=== PATIENT | male | born 1950 | race African-American/Black ===

== ENCOUNTER 2021-07-04 05:44 | Day surgery (SDC) | payer OTHER ==
[2021-07-02 12:23] VITALS: BMI 24.0
[2021-07-04 12:10] VITALS: TEMP 97.5
[2021-07-04 12:35] VITALS: BP 119/75; PULSE 64
== END 2021-07-04 12:36 | disposition home or self-care (01) ==
LOC: JASU-ENDO 05:44
PROVIDERS: ATTEND Internal Medicine Gastroenterology
PROC: 0DJD8ZZ Inspection of Lower Intestinal Tract, Via Natural or Artificial Opening Endoscopic (ICD-10-PCS; principal; 2021-07-04 11:00)
DX: Z12.11 Encounter for screening for malignant neoplasm of colon (principal); K63.89 Other specified diseases of intestine; K59.09 Other constipation

== ENCOUNTER 2021-08-07 20:29 | Emergency (ER) | payer OTHER ==
[2021-08-07 20:51] VITALS: BP 111/71; PULSE 95; TEMP 98.9; BMI 25.0
[2021-08-07] MEDS ORDERED: KETOROLAC TROMETHAMINE 30 MG/1 ML VIAL IM ONE (21:53)
[2021-08-07] MEDS ORDERED: LIDOCAINE 5% TOPICAL PATCH TP ONE (21:53)
[2021-08-07] MEDS ORDERED: ACETAMINOPHEN 500 MG TABLET (FP) PO ONE (21:53)
[2021-08-07] MEDS ORDERED: LIDOCAINE PATCH REMOVAL MC SCH (22:00)
[2021-08-07] MEDS ORDERED: DEXAMETHASONE SOD PHOSPHATE 10 MG/1 ML VIAL IM ONE (23:03)
[2021-08-07] MEDS ORDERED: DEXAMETHASONE SOD PHOSPHATE 10 MG/1 ML VIAL ONE (23:09)
== END 2021-08-07 22:17 | disposition home or self-care (01) ==
LOC: JER 20:29
PROC: 3E023GC Introduction of Other Therapeutic Substance into Muscle, Percutaneous Approach (ICD-10-PCS; principal; 2021-08-07)
PROC: 3E0233Z Introduction of Anti-inflammatory into Muscle, Percutaneous Approach (ICD-10-PCS; 2021-08-07)
DX: M54.50 Low back pain, unspecified (principal)
CPT/HCPCS: 73110-TC-RT-FY; 73130-TC-RT-FY; 99284-25; J1100

== ENCOUNTER 2021-08-15 20:57 | Inpatient (IN) | payer OTHER ==
[2021-08-15 21:29] VITALS: BMI 25.0
[2021-08-15] MEDS ORDERED: ACETAMINOPHEN 500 MG TABLET (FP) PO ONE (22:11)
[2021-08-15] MEDS ORDERED: LIDOCAINE 5% TOPICAL PATCH TP ONE (22:17)
[2021-08-15] MEDS ORDERED: KETOROLAC TROMETHAMINE 15 MG/ML VIAL IVPUSH ONE (22:17)
[2021-08-15] MEDS ORDERED: LIDOCAINE 5% TOPICAL PATCH ONE (22:29)
[2021-08-15] MEDS ORDERED: ACETAMINOPHEN 325 MG TABLET (FP) ONE (22:29)
[2021-08-15] MEDS ORDERED: KETOROLAC TROMETHAMINE 15 MG/ML VIAL ONE (22:30)
[2021-08-15 23:05] LABS: BASO % 0.7 % (0-2.0); EOS % 0.7 % (0-4.5); HEMATOCRIT 36.7 % (35.4-49); HEMOGLOBIN 12.7 GM/dL (11.7-16.9); LYMPH % 21.9 % (8-40); MCH 31.6 pg (25.7-33.7); MCHC 34.5 g/dl (32.0-35.9); MEAN CELL VOLUME 91.6 fl (80-96); MEAN PLT VOLUME 6.8 fl (7.5-11.1); MONO % 9.4 % (3.8-10.2); NEUT % 67.3 % (42.8-82.8); PLATELET COUNT 578 10^3/uL (134-434); RDW 14.9 % (11.9-15.9)
[2021-08-15 23:11] LABS: INR 1.2 (0.83-1.09); PROTHROMBIN TIME (PATIENT) 13.8 SEC (9.7-13.0)
[2021-08-15 23:14] LABS: ACTIVATED PTT 32.7 SECONDS (25.2-36.5)
[2021-08-15 23:49] LABS: CALCIUM 9.6 mg/dL (8.5-10.1)
[2021-08-15 23:50] LABS: ALBUMIN 2.9 g/dl (3.4-5.0); BLOOD UREA NITROGEN 10.6 mg/dL (7-18)
[2021-08-15 23:52] LABS: CREATININE 0.8 mg/dL (0.55-1.3)
[2021-08-15 23:54] LABS: BILIRUBIN,TOTAL 0.7 mg/dL (0.2-1); TOT PROT 7.9 g/dl (6.4-8.2)
[2021-08-16] MEDS ORDERED: SENNOSIDES 8.6MG TABLET (FP) PO PRN (04:15)
[2021-08-16 08:38] LABS: BASO % 0.5 % (0-2.0); EOS % 0.9 % (0-4.5); HEMATOCRIT 35.9 % (35.4-49); HEMOGLOBIN 12.2 GM/dL (11.7-16.9); LYMPH % 23.6 % (8-40); MCH 31.1 pg (25.7-33.7); MEAN CELL VOLUME 91.7 fl (80-96); MEAN PLT VOLUME 7.3 fl (7.5-11.1); MONO % 10.3 % (3.8-10.2); NEUT % 64.7 % (42.8-82.8); PLATELET COUNT 609 10^3/uL (134-434); RBC 3.92 M/mm3 (4.00-5.60); RDW 14.6 % (11.9-15.9)
[2021-08-16 08:47] LABS: MAGNESIUM 2.2 mg/dL (1.8-2.4)
[2021-08-16 08:49] LABS: ALBUMIN 2.8 g/dl (3.4-5.0); BLOOD UREA NITROGEN 13.2 mg/dL (7-18); CALCIUM 9.7 mg/dL (8.5-10.1)
[2021-08-16 08:51] LABS: CREATININE 0.8 mg/dL (0.55-1.3)
[2021-08-16 08:52] LABS: PHOSPHOROUS 4.1 mg/dL (2.5-4.9)
[2021-08-16 08:53] LABS: TOT PROT 7.3 g/dl (6.4-8.2)
[2021-08-16 08:54] LABS: BILIRUBIN,TOTAL 0.7 mg/dL (0.2-1)
[2021-08-16] MEDS: LIDOCAINE 5% TOPICAL PATCH TP PRN (09:10)
[2021-08-16] MEDS: POLYETHYLENE GLYCOL (HEALTHYLAX) 3350 17 GM PACKET PO SCH ×3 (09:11→21:22)
[2021-08-16] MEDS ORDERED: POLYETHYLENE GLYCOL 3350 119 GM BTL PO SCH (10:00)
[2021-08-16] MEDS: ENOXAPARIN NA (PORCINE) 40 MG/0.4 ML DISP.SYRIN SQ SCH (11:05)
[2021-08-16] MEDS: amLODIPine BESYLATE 5 MG TABLET (FP) PO SCH (11:05)
[2021-08-16] MEDS: IBUPROFEN 400 MG TABLET (FP) PO PRN ×2 (13:41→21:25)
[2021-08-16 16:32] LABS: URINE APPEARANCE CLEAR; URINE BILIRUBIN NEGATIVE (NEGATIVE); URINE COLOR YELLOW; URINE GLUCOSE (UA) NEGATIVE (NEGATIVE); URINE KETONE NEGATIVE (NEGATIVE); URINE LEUK ESTERASE NEGATIVE (NEGATIVE); URINE NITRITE NEGATIVE (NEGATIVE); URINE PROTEIN NEGATIVE (NEGATIVE); URINE UROBILINOGEN 4.0 E.U/dl mg/dL (0.2-1.0)
[2021-08-16] MEDS ORDERED: SODIUM CHLORIDE 1,000 ML IV SCH (17:45)
[2021-08-16] MEDS: LIDOCAINE PATCH REMOVAL MC SCH (21:22)
[2021-08-16] MEDS ORDERED: LIDOCAINE PATCH REMOVAL MC ONE (22:00)
[2021-08-16] MEDS: SODIUM CHLORIDE 0.45% 1,000 ML IV SCH (23:11)
[2021-08-17] MEDS: POLYETHYLENE GLYCOL (HEALTHYLAX) 3350 17 GM PACKET PO SCH ×4 (06:12→21:23)
[2021-08-17 06:41] LABS: HEMATOCRIT 35.8 % (35.4-49); HEMOGLOBIN 12.2 GM/dL (11.7-16.9); MCH 31.4 pg (25.7-33.7); MCHC 34.1 g/dl (32.0-35.9); MEAN PLT VOLUME 6.9 fl (7.5-11.1); PLATELET COUNT 594 10^3/uL (134-434); RBC 3.89 M/mm3 (4.00-5.60); RDW 14.8 % (11.9-15.9); WHITE BLOOD COUNT 8.6 K/mm3 (4.0-10.0)
[2021-08-17 06:57] LABS: BLOOD UREA NITROGEN 10.1 mg/dL (7-18)
[2021-08-17 06:58] LABS: ALBUMIN 2.6 g/dl (3.4-5.0)
[2021-08-17 07:01] LABS: CREATININE 0.8 mg/dL (0.55-1.3)
[2021-08-17 07:03] LABS: BILIRUBIN,TOTAL 0.7 mg/dL (0.2-1); TOT PROT 7.4 g/dl (6.4-8.2)
[2021-08-17] MEDS: ENOXAPARIN NA (PORCINE) 40 MG/0.4 ML DISP.SYRIN SQ SCH (09:16)
[2021-08-17] MEDS: amLODIPine BESYLATE 5 MG TABLET (FP) PO SCH (09:16)
[2021-08-17] MEDS: PANTOPRAZOLE 40 MG TABLET PO SCH (18:00)
[2021-08-17] MEDS: LIDOCAINE PATCH REMOVAL MC SCH (21:24)
[2021-08-17] MEDS: SODIUM CHLORIDE 0.45% 1,000 ML IV SCH (21:24)
[2021-08-18] MEDS: POLYETHYLENE GLYCOL (HEALTHYLAX) 3350 17 GM PACKET PO SCH ×3 (05:39→22:29)
[2021-08-18 07:49] LABS: HEMATOCRIT 34.9 % (35.4-49); HEMOGLOBIN 11.8 GM/dL (11.7-16.9); MCHC 33.8 g/dl (32.0-35.9); MEAN CELL VOLUME 91.7 fl (80-96); MEAN PLT VOLUME 7.2 fl (7.5-11.1); PLATELET COUNT 625 10^3/uL (134-434); RBC 3.81 M/mm3 (4.00-5.60); RDW 14.6 % (11.9-15.9); WHITE BLOOD COUNT 8.5 K/mm3 (4.0-10.0)
[2021-08-18 07:57] LABS: INR 1.19 (0.83-1.09); PROTHROMBIN TIME (PATIENT) 13.7 SEC (9.7-13.0)
[2021-08-18 07:59] LABS: ACTIVATED PTT 32.9 SECONDS (25.2-36.5)
[2021-08-18 08:07] LABS: CHLORIDE 102 mmol/L (98-107); SODIUM 135 mmol/L (136-145)
[2021-08-18 08:10] LABS: ALBUMIN 2.6 g/dl (3.4-5.0); ANION GAP 7 MMOL/L (8-16); BLOOD UREA NITROGEN 8.9 mg/dL (7-18); CALCIUM 9.4 mg/dL (8.5-10.1); CO2 25 mmol/L (21-32); GLUCOSE,RANDOM 115 mg/dL (74-106)
[2021-08-18 08:13] LABS: CREATININE 0.7 mg/dL (0.55-1.3); IRON SERUM 37 ug/dL (50-175); SGOT/AST 39 U/L (15-37); SGPT/ALT 103 U/L (13-61); TOTAL IRON BINDING CAPACITY 170 ug/dL (250-450)
[2021-08-18 08:15] LABS: BILIRUBIN,TOTAL 0.9 mg/dL (0.2-1); TOT PROT 7.2 g/dl (6.4-8.2)
[2021-08-18 08:17] LABS: ALK PHOS 266 U/L (45-117)
[2021-08-18 08:26] LABS: LDH 170 U/L (87-246)
[2021-08-18 09:20] LABS: ERYTHROCYTE SEDIMENTATION RATE 96 mm/hr (0-20)
[2021-08-18] MEDS: PANTOPRAZOLE 40 MG TABLET PO SCH (10:16)
[2021-08-18] MEDS: amLODIPine BESYLATE 5 MG TABLET (FP) PO SCH (10:16)
[2021-08-18] MEDS: ENOXAPARIN NA (PORCINE) 40 MG/0.4 ML DISP.SYRIN SQ SCH (10:17)
[2021-08-18] MEDS: LIDOCAINE 5% TOPICAL PATCH TP PRN (13:30)
[2021-08-18] MEDS: LIDOCAINE PATCH REMOVAL MC SCH (22:29)
[2021-08-18] MEDS: SODIUM CHLORIDE 0.45% 1,000 ML IV SCH (22:29)
[2021-08-19] MEDS: POLYETHYLENE GLYCOL (HEALTHYLAX) 3350 17 GM PACKET PO SCH ×3 (06:40→22:14)
[2021-08-19 08:50] LABS: HEMATOCRIT 32.8 % (35.4-49); HEMOGLOBIN 11.4 GM/dL (11.7-16.9); MCH 31.7 pg (25.7-33.7); MCHC 34.8 g/dl (32.0-35.9); MEAN CELL VOLUME 91.2 fl (80-96); MEAN PLT VOLUME 7.2 fl (7.5-11.1); PLATELET COUNT 630 10^3/uL (134-434); RDW 14.4 % (11.9-15.9); WHITE BLOOD COUNT 8.3 K/mm3 (4.0-10.0)
[2021-08-19 08:53] LABS: BASO % 0.4 % (0-2.0); EOS % 0.4 % (0-4.5); HEMOGLOBIN 11.6 GM/dL (11.7-16.9); LYMPH % 24.1 % (8-40); MCH 31.3 pg (25.7-33.7); MCHC 34.2 g/dl (32.0-35.9); MEAN CELL VOLUME 91.5 fl (80-96); MEAN PLT VOLUME 7.1 fl (7.5-11.1); MONO % 9.5 % (3.8-10.2); NEUT % 65.6 % (42.8-82.8); PLATELET COUNT 624 10^3/uL (134-434); RBC 3.72 M/mm3 (4.00-5.60); RDW 14.3 % (11.9-15.9); WHITE BLOOD COUNT 8.1 K/mm3 (4.0-10.0)
[2021-08-19 09:13] LABS: BLOOD UREA NITROGEN 13.1 mg/dL (7-18); CALCIUM 9.6 mg/dL (8.5-10.1)
[2021-08-19 09:14] LABS: ALBUMIN 2.5 g/dl (3.4-5.0)
[2021-08-19 09:17] LABS: CREATININE 0.8 mg/dL (0.55-1.3); PHOSPHOROUS 3.4 mg/dL (2.5-4.9)
[2021-08-19 09:18] LABS: BILIRUBIN,TOTAL 1.7 mg/dL (0.2-1); TOT PROT 7.3 g/dl (6.4-8.2)
[2021-08-19] MEDS: ENOXAPARIN NA (PORCINE) 40 MG/0.4 ML DISP.SYRIN SQ SCH (09:30)
[2021-08-19 09:37] LABS: ERYTHROCYTE SEDIMENTATION RATE 90 mm/hr (0-20)
[2021-08-19] MEDS: PANTOPRAZOLE 40 MG TABLET PO SCH (09:49)
[2021-08-19] MEDS: amLODIPine BESYLATE 5 MG TABLET (FP) PO SCH (09:49)
[2021-08-19 18:10] LABS: FREE KAPPA,SERUM 39.2 mg/L (3.3-19.4)
[2021-08-19] MEDS: IBUPROFEN 400 MG TABLET (FP) PO PRN (18:11)
[2021-08-19] MEDS: SODIUM CHLORIDE 0.45% 1,000 ML IV SCH ×2 (20:11→22:13)
[2021-08-19] MEDS: LIDOCAINE PATCH REMOVAL MC SCH (22:14)
[2021-08-20] MEDS: POLYETHYLENE GLYCOL (HEALTHYLAX) 3350 17 GM PACKET PO SCH ×3 (06:18→22:41)
[2021-08-20 07:44] LABS: HEMATOCRIT 34.3 % (35.4-49); HEMOGLOBIN 11.7 GM/dL (11.7-16.9); MCH 31.2 pg (25.7-33.7); MEAN PLT VOLUME 7.2 fl (7.5-11.1); PLATELET COUNT 648 10^3/uL (134-434); RBC 3.73 M/mm3 (4.00-5.60); RDW 14.3 % (11.9-15.9); WHITE BLOOD COUNT 7.6 K/mm3 (4.0-10.0)
[2021-08-20 08:00] LABS: ALBUMIN 2.5 g/dl (3.4-5.0); BLOOD UREA NITROGEN 12.7 mg/dL (7-18)
[2021-08-20 08:01] LABS: MAGNESIUM 2.3 mg/dL (1.8-2.4)
[2021-08-20 08:03] LABS: CREATININE 0.7 mg/dL (0.55-1.3); PHOSPHOROUS 3.7 mg/dL (2.5-4.9)
[2021-08-20 08:05] LABS: BILIRUBIN,TOTAL 1.1 mg/dL (0.2-1); TOT PROT 7.4 g/dl (6.4-8.2)
[2021-08-20 08:46] LABS: HIV INTERPRETATION NEGATIVE (NEGATIVE)
[2021-08-20] MEDS: PANTOPRAZOLE 40 MG TABLET PO SCH (09:16)
[2021-08-20] MEDS: amLODIPine BESYLATE 5 MG TABLET (FP) PO SCH (09:16)
[2021-08-20 10:00] LABS: ERYTHROCYTE SEDIMENTATION RATE 89 mm/hr (0-20)
[2021-08-20 13:00] LABS: ACTIVATED PTT 30.5 SECONDS (25.2-36.5); INR 1.24 (0.83-1.09); PROTHROMBIN TIME (PATIENT) 14.3 SEC (9.7-13.0)
[2021-08-20] MEDS: LIDOCAINE 5% TOPICAL PATCH TP PRN (18:12)
[2021-08-20] MEDS: LIDOCAINE PATCH REMOVAL MC SCH (22:42)
[2021-08-21 04:07] LABS: IGA IMMUNOGLOBULIN 530 mg/dL (61-437); IGG QN IMMUNOGLOBULIN 1493 mg/dL (603-1613); IGM QN SERUM 36 mg/dL (15-143)
[2021-08-21 07:17] LABS: HEMATOCRIT 32.2 % (35.4-49); HEMOGLOBIN 10.9 GM/dL (11.7-16.9); MCHC 33.9 g/dl (32.0-35.9); MEAN CELL VOLUME 91.5 fl (80-96); MEAN PLT VOLUME 7.1 fl (7.5-11.1); PLATELET COUNT 656 10^3/uL (134-434); RBC 3.52 M/mm3 (4.00-5.60); RDW 14.2 % (11.9-15.9); WHITE BLOOD COUNT 8.6 K/mm3 (4.0-10.0)
[2021-08-21 07:44] LABS: PHOSPHOROUS 4.3 mg/dL (2.5-4.9)
[2021-08-21 07:45] LABS: ALBUMIN 2.6 g/dl (3.4-5.0); BLOOD UREA NITROGEN 12.9 mg/dL (7-18)
[2021-08-21 07:46] LABS: CALCIUM 9.9 mg/dL (8.5-10.1); CREATININE 0.8 mg/dL (0.55-1.3); MAGNESIUM 2.1 mg/dL (1.8-2.4); TOT PROT 7.4 g/dl (6.4-8.2)
[2021-08-21] MEDS: amLODIPine BESYLATE 5 MG TABLET (FP) PO SCH (09:08)
[2021-08-21] MEDS: PANTOPRAZOLE 40 MG TABLET PO SCH (09:08)
[2021-08-21] MEDS: POLYETHYLENE GLYCOL (HEALTHYLAX) 3350 17 GM PACKET PO SCH (09:09)
[2021-08-21] MEDS ORDERED: MIDAZOLAM HCL 2 MG/2 ML SINGLE DOSE VIAL ONE (10:50)
[2021-08-21] MEDS ORDERED: FENTANYL CITRATE/PF 50 MCG/ML VIAL ONE (10:50)
[2021-08-21] MEDS ORDERED: FENTANYL CITRATE/PF 50 MCG/ML VIAL IVPUSH ONE ×2 (11:22→11:37)
[2021-08-21] MEDS ORDERED: MIDAZOLAM HCL 2 MG/2 ML SINGLE DOSE VIAL IVPUSH ONE ×2 (11:22→11:37)
[2021-08-21] MEDS ORDERED: PIPERACILLIN/TAZOB 3.375 GM 3.375 GM in DEXTROSE 5%-WATER - 50 ML IVPB SCH (15:00)
[2021-08-21] MEDS ORDERED: PIPERACILLIN/TAZOBACTAM 3.375 GM VIAL IVPB ONE ×2 (15:23→22:26)
[2021-08-21] MEDS ORDERED: DEXTROSE 5%-WATER - 50 ML IVPB ONE ×2 (15:23→22:26)
[2021-08-21] MEDS: VANCOMYCIN/WATER FOR INJ (PEG) 1,000 MG/200 ML BAG IVPB SCH (17:06)
[2021-08-21] MEDS: LIDOCAINE PATCH REMOVAL MC SCH (21:45)
[2021-08-21] MEDS: PIPERACILLIN/TAZOB 3.375 GM 3.375 GM in DEXTROSE 5%-WATER - 50 ML IVPB SCH (23:03)
[2021-08-22] MEDS: VANCOMYCIN/WATER FOR INJ (PEG) 1,000 MG/200 ML BAG IVPB SCH ×2 (03:46→18:31)
[2021-08-22] MEDS ORDERED: DEXTROSE 5%-WATER - 50 ML IVPB ONE ×2 (05:46→16:36)
[2021-08-22] MEDS ORDERED: PIPERACILLIN/TAZOBACTAM 3.375 GM VIAL IVPB ONE ×2 (05:46→16:36)
[2021-08-22] MEDS: PIPERACILLIN/TAZOB 3.375 GM 3.375 GM in DEXTROSE 5%-WATER - 50 ML IVPB SCH ×2 (06:02→17:59)
[2021-08-22 08:50] LABS: HEMATOCRIT 32.8 % (35.4-49); MCH 30.7 pg (25.7-33.7); MCHC 33.4 g/dl (32.0-35.9); MEAN CELL VOLUME 91.9 fl (80-96); MEAN PLT VOLUME 6.9 fl (7.5-11.1); PLATELET COUNT 669 10^3/uL (134-434); RBC 3.57 M/mm3 (4.00-5.60); RDW 14.2 % (11.9-15.9); WHITE BLOOD COUNT 9.4 K/mm3 (4.0-10.0)
[2021-08-22] MEDS: PANTOPRAZOLE 40 MG TABLET PO SCH (09:15)
[2021-08-22] MEDS: amLODIPine BESYLATE 5 MG TABLET (FP) PO SCH (09:15)
[2021-08-22] MEDS: ENOXAPARIN NA (PORCINE) 40 MG/0.4 ML DISP.SYRIN SQ SCH (09:15)
[2021-08-22 09:16] LABS: ALBUMIN 2.5 g/dl (3.4-5.0)
[2021-08-22 09:17] LABS: CALCIUM 9.7 mg/dL (8.5-10.1)
[2021-08-22 09:18] LABS: BLOOD UREA NITROGEN 15.4 mg/dL (7-18); MAGNESIUM 2.1 mg/dL (1.8-2.4)
[2021-08-22 09:20] LABS: PHOSPHOROUS 4.3 mg/dL (2.5-4.9)
[2021-08-22 09:21] LABS: BILIRUBIN,TOTAL 1.2 mg/dL (0.2-1)
[2021-08-22] MEDS: POLYETHYLENE GLYCOL (HEALTHYLAX) 3350 17 GM PACKET PO SCH ×2 (09:21→21:48)
[2021-08-22 09:22] LABS: TOT PROT 7.5 g/dl (6.4-8.2)
[2021-08-22] MEDS: LIDOCAINE PATCH REMOVAL MC SCH (21:48)
[2021-08-23] MEDS ORDERED: DEXTROSE 5%-WATER - 50 ML IVPB ONE ×3 (01:40→14:59)
[2021-08-23] MEDS ORDERED: PIPERACILLIN/TAZOBACTAM 3.375 GM VIAL IVPB ONE ×3 (01:40→14:59)
[2021-08-23] MEDS: PIPERACILLIN/TAZOB 3.375 GM 3.375 GM in DEXTROSE 5%-WATER - 50 ML IVPB SCH ×3 (02:00→15:04)
[2021-08-23] MEDS: VANCOMYCIN/WATER FOR INJ (PEG) 1,000 MG/200 ML BAG IVPB SCH ×2 (05:45→15:05)
[2021-08-23 08:56] LABS: HEMATOCRIT 33.2 % (35.4-49); HEMOGLOBIN 11.1 GM/dL (11.7-16.9); MCH 30.4 pg (25.7-33.7); MCHC 33.3 g/dl (32.0-35.9); MEAN CELL VOLUME 91.2 fl (80-96); PLATELET COUNT 629 10^3/uL (134-434); RBC 3.65 M/mm3 (4.00-5.60); RDW 14.2 % (11.9-15.9); WHITE BLOOD COUNT 8.1 K/mm3 (4.0-10.0)
[2021-08-23 09:12] LABS: CALCIUM 9.6 mg/dL (8.5-10.1)
[2021-08-23 09:13] LABS: ALBUMIN 2.5 g/dl (3.4-5.0); BLOOD UREA NITROGEN 11.7 mg/dL (7-18); MAGNESIUM 2.1 mg/dL (1.8-2.4)
[2021-08-23 09:16] LABS: CREATININE 0.9 mg/dL (0.55-1.3); PHOSPHOROUS 4.3 mg/dL (2.5-4.9)
[2021-08-23 09:17] LABS: BILIRUBIN,TOTAL 0.8 mg/dL (0.2-1); TOT PROT 7.4 g/dl (6.4-8.2)
[2021-08-23] MEDS: amLODIPine BESYLATE 5 MG TABLET (FP) PO SCH (10:57)
[2021-08-23] MEDS: POLYETHYLENE GLYCOL (HEALTHYLAX) 3350 17 GM PACKET PO SCH ×2 (10:57→22:47)
[2021-08-23] MEDS: PANTOPRAZOLE 40 MG TABLET PO SCH (10:57)
[2021-08-23] MEDS: ENOXAPARIN NA (PORCINE) 40 MG/0.4 ML DISP.SYRIN SQ SCH (10:58)
[2021-08-23] MEDS: CEFAZOLIN 2 GM in DEXTROSE 5%-WATER - 100 ML IVPB SCH (17:24)
[2021-08-23] MEDS: LIDOCAINE PATCH REMOVAL MC SCH (22:47)
[2021-08-24] MEDS: CEFAZOLIN 2 GM in DEXTROSE 5%-WATER - 100 ML IVPB SCH ×3 (01:36→17:08)
[2021-08-24 08:20] LABS: HEMATOCRIT 33.7 % (35.4-49); HEMOGLOBIN 11.4 GM/dL (11.7-16.9); MEAN CELL VOLUME 91.3 fl (80-96); MEAN PLT VOLUME 7.3 fl (7.5-11.1); PLATELET COUNT 635 10^3/uL (134-434); RBC 3.69 M/mm3 (4.00-5.60); RDW 14.4 % (11.9-15.9); WHITE BLOOD COUNT 6.7 K/mm3 (4.0-10.0)
[2021-08-24 08:33] LABS: ALBUMIN 2.6 g/dl (3.4-5.0); BLOOD UREA NITROGEN 12.2 mg/dL (7-18); CALCIUM 9.9 mg/dL (8.5-10.1)
[2021-08-24 08:34] LABS: PHOSPHOROUS 4.2 mg/dL (2.5-4.9)
[2021-08-24 08:36] LABS: BILIRUBIN,TOTAL 0.7 mg/dL (0.2-1); CREATININE 0.9 mg/dL (0.55-1.3); TOT PROT 7.7 g/dl (6.4-8.2)
[2021-08-24] MEDS: POLYETHYLENE GLYCOL (HEALTHYLAX) 3350 17 GM PACKET PO SCH ×2 (10:14→21:21)
[2021-08-24] MEDS: ENOXAPARIN NA (PORCINE) 40 MG/0.4 ML DISP.SYRIN SQ SCH (10:15)
[2021-08-24] MEDS: PANTOPRAZOLE 40 MG TABLET PO SCH (10:15)
[2021-08-24] MEDS: amLODIPine BESYLATE 5 MG TABLET (FP) PO SCH (10:15)
[2021-08-24 16:42] LABS: URIC ACID 3.3 mg/dL (2.6-7.2)
[2021-08-24] MEDS ORDERED: LIDOCAINE HCL 2% (50ML VIAL) INF ONE (16:45)
[2021-08-24] MEDS ORDERED: TRIAMCINOLONE ACET 40MG/1ML VIAL IJ ONE (16:46)
[2021-08-24] MEDS ORDERED: LIDOCAINE HCL/PF 2% SDV 5ML VIAL INF ONE (17:15)
[2021-08-24] MEDS: LIDOCAINE PATCH REMOVAL MC SCH (21:22)
[2021-08-25] MEDS: CEFAZOLIN 2 GM in DEXTROSE 5%-WATER - 100 ML IVPB SCH ×3 (01:51→17:45)
[2021-08-25 09:31] LABS: HEMOGLOBIN 11.9 GM/dL (11.7-16.9); MCH 30.4 pg (25.7-33.7); MCHC 33.1 g/dl (32.0-35.9); MEAN CELL VOLUME 91.7 fl (80-96); MEAN PLT VOLUME 6.9 fl (7.5-11.1); PLATELET COUNT 659 10^3/uL (134-434); RBC 3.93 M/mm3 (4.00-5.60); RDW 14.3 % (11.9-15.9); WHITE BLOOD COUNT 7.7 K/mm3 (4.0-10.0)
[2021-08-25 10:03] LABS: CALCIUM 10.3 mg/dL (8.5-10.1)
[2021-08-25 10:04] LABS: BLOOD UREA NITROGEN 13.4 mg/dL (7-18); MAGNESIUM 2.2 mg/dL (1.8-2.4)
[2021-08-25 10:07] LABS: CREATININE 0.9 mg/dL (0.55-1.3); PHOSPHOROUS 4.1 mg/dL (2.5-4.9)
[2021-08-25 10:08] LABS: BILIRUBIN,TOTAL 0.7 mg/dL (0.2-1)
[2021-08-25] MEDS: amLODIPine BESYLATE 5 MG TABLET (FP) PO SCH (10:10)
[2021-08-25] MEDS: PANTOPRAZOLE 40 MG TABLET PO SCH (10:10)
[2021-08-25] MEDS: ENOXAPARIN NA (PORCINE) 40 MG/0.4 ML DISP.SYRIN SQ SCH (10:11)
[2021-08-25] MEDS: POLYETHYLENE GLYCOL (HEALTHYLAX) 3350 17 GM PACKET PO SCH ×2 (10:11→10:16)
[2021-08-25 10:12] LABS: TOT PROT 8.2 g/dl (6.4-8.2)
[2021-08-25 10:16] LABS: ALBUMIN 2.7 g/dl (3.4-5.0)
[2021-08-25 13:06] LABS: ALBUMIN % 16.4 % (.); ALPHA-1 FOR UPE 4.3 % (.); TOTAL PROTEIN, URINE 14.8 mg/dL (Not Estab.)
[2021-08-25 18:37] LABS: BF WBC & OTHER NUCLEATED CELLS 15519 /mm3
[2021-08-25 20:26] LABS: BODY FLUID MACROPHAGES 3 %; BODY FLUID MONOCYTE 7 %
[2021-08-25] MEDS: LIDOCAINE PATCH REMOVAL MC SCH (21:19)
[2021-08-26] MEDS: CEFAZOLIN SODIUM 2 GM in DEXTROSE 5%-WATER 100 ML IVPB SCH ×3 (03:45→17:02)
[2021-08-26] MEDS: CEFAZOLIN 2 GM in DEXTROSE 5%-WATER - 100 ML IVPB SCH (08:09)
[2021-08-26 08:28] LABS: HEMATOCRIT 35.5 % (35.4-49); MCH 31.2 pg (25.7-33.7); MCHC 33.8 g/dl (32.0-35.9); MEAN CELL VOLUME 92.1 fl (80-96); MEAN PLT VOLUME 7.3 fl (7.5-11.1); PLATELET COUNT 634 10^3/uL (134-434); RBC 3.85 M/mm3 (4.00-5.60); RDW 14.2 % (11.9-15.9); WHITE BLOOD COUNT 5.4 K/mm3 (4.0-10.0)
[2021-08-26 08:56] LABS: CALCIUM 10.2 mg/dL (8.5-10.1)
[2021-08-26 08:57] LABS: ALBUMIN 2.6 g/dl (3.4-5.0); BLOOD UREA NITROGEN 18.1 mg/dL (7-18); MAGNESIUM 2.2 mg/dL (1.8-2.4)
[2021-08-26 09:00] LABS: CREATININE 0.8 mg/dL (0.55-1.3)
[2021-08-26 09:02] LABS: BILIRUBIN,TOTAL 0.6 mg/dL (0.2-1); TOT PROT 8.5 g/dl (6.4-8.2)
[2021-08-26] MEDS: ENOXAPARIN NA (PORCINE) 40 MG/0.4 ML DISP.SYRIN SQ SCH (10:29)
[2021-08-26] MEDS: POLYETHYLENE GLYCOL (HEALTHYLAX) 3350 17 GM PACKET PO SCH (10:29)
[2021-08-26] MEDS: PANTOPRAZOLE 40 MG TABLET PO SCH (10:29)
[2021-08-26] MEDS: amLODIPine BESYLATE 5 MG TABLET (FP) PO SCH (10:30)
[2021-08-26] MEDS: LIDOCAINE PATCH REMOVAL MC SCH (22:49)
[2021-08-27] MEDS: CEFAZOLIN SODIUM 2 GM in DEXTROSE 5%-WATER 100 ML IVPB SCH ×3 (02:46→18:03)
[2021-08-27] MEDS: ENOXAPARIN NA (PORCINE) 40 MG/0.4 ML DISP.SYRIN SQ SCH (09:50)
[2021-08-27] MEDS: PANTOPRAZOLE 40 MG TABLET PO SCH (09:50)
[2021-08-27] MEDS: amLODIPine BESYLATE 5 MG TABLET (FP) PO SCH (09:50)
[2021-08-27] MEDS: POLYETHYLENE GLYCOL (HEALTHYLAX) 3350 17 GM PACKET PO SCH (09:50)
[2021-08-27 10:42] LABS: ALBUMIN 2.8 g/dl (3.4-5.0); BILIRUBIN,TOTAL 0.4 mg/dL (0.2-1); BLOOD UREA NITROGEN 21.9 mg/dL (7-18); CREATININE 0.8 mg/dL (0.55-1.3); MAGNESIUM 2.3 mg/dL (1.8-2.4); PHOSPHOROUS 3.4 mg/dL (2.5-4.9); TOT PROT 8.2 g/dl (6.4-8.2)
[2021-08-27 11:17] LABS: HEMATOCRIT 34.4 % (35.4-49); HEMOGLOBIN 11.5 GM/dL (11.7-16.9); MCH 30.5 pg (25.7-33.7); MCHC 33.5 g/dl (32.0-35.9); MEAN CELL VOLUME 91.1 fl (80-96); PLATELET COUNT 622 10^3/uL (134-434); RBC 3.77 M/mm3 (4.00-5.60); RDW 14.1 % (11.9-15.9); WHITE BLOOD COUNT 8.9 K/mm3 (4.0-10.0)
[2021-08-28] MEDS: LIDOCAINE PATCH REMOVAL MC SCH ×2 (01:27→22:22)
[2021-08-28] MEDS: CEFAZOLIN SODIUM 2 GM in DEXTROSE 5%-WATER 100 ML IVPB SCH ×3 (02:09→17:16)
[2021-08-28 08:43] LABS: HEMATOCRIT 33.6 % (35.4-49); HEMOGLOBIN 11.3 GM/dL (11.7-16.9); MCH 30.8 pg (25.7-33.7); MCHC 33.7 g/dl (32.0-35.9); MEAN CELL VOLUME 91.3 fl (80-96); MEAN PLT VOLUME 7.4 fl (7.5-11.1); PLATELET COUNT 610 10^3/uL (134-434); RBC 3.68 M/mm3 (4.00-5.60); RDW 14.1 % (11.9-15.9); WHITE BLOOD COUNT 7.5 K/mm3 (4.0-10.0)
[2021-08-28 08:57] LABS: CALCIUM 9.7 mg/dL (8.5-10.1)
[2021-08-28 08:58] LABS: MAGNESIUM 2.2 mg/dL (1.8-2.4)
[2021-08-28 08:59] LABS: ALBUMIN 2.6 g/dl (3.4-5.0); CREATININE 0.8 mg/dL (0.55-1.3)
[2021-08-28 09:01] LABS: TOT PROT 7.6 g/dl (6.4-8.2)
[2021-08-28 09:02] LABS: BLOOD UREA NITROGEN 23.9 mg/dL (7-18)
[2021-08-28 09:03] LABS: PHOSPHOROUS 3.6 mg/dL (2.5-4.9)
[2021-08-28 09:04] LABS: BILIRUBIN,TOTAL 0.4 mg/dL (0.2-1)
[2021-08-28] MEDS: ENOXAPARIN NA (PORCINE) 40 MG/0.4 ML DISP.SYRIN SQ SCH (10:43)
[2021-08-28] MEDS: PANTOPRAZOLE 40 MG TABLET PO SCH (10:43)
[2021-08-28] MEDS: amLODIPine BESYLATE 5 MG TABLET (FP) PO SCH (10:43)
[2021-08-28] MEDS: POLYETHYLENE GLYCOL (HEALTHYLAX) 3350 17 GM PACKET PO SCH (10:43)
[2021-08-29] MEDS: CEFAZOLIN SODIUM 2 GM in DEXTROSE 5%-WATER 100 ML IVPB SCH ×2 (02:19→09:52)
[2021-08-29 08:53] LABS: HEMATOCRIT 34.6 % (35.4-49); HEMOGLOBIN 11.6 GM/dL (11.7-16.9); MCH 30.7 pg (25.7-33.7); MCHC 33.4 g/dl (32.0-35.9); MEAN CELL VOLUME 91.7 fl (80-96); MEAN PLT VOLUME 7.2 fl (7.5-11.1); PLATELET COUNT 577 10^3/uL (134-434); RBC 3.78 M/mm3 (4.00-5.60); WHITE BLOOD COUNT 6.7 K/mm3 (4.0-10.0)
[2021-08-29 09:23] LABS: ALBUMIN 2.7 g/dl (3.4-5.0); BLOOD UREA NITROGEN 18.4 mg/dL (7-18)
[2021-08-29 09:24] LABS: CALCIUM 9.9 mg/dL (8.5-10.1); MAGNESIUM 2.2 mg/dL (1.8-2.4)
[2021-08-29 09:26] LABS: CREATININE 0.7 mg/dL (0.55-1.3); PHOSPHOROUS 3.6 mg/dL (2.5-4.9)
[2021-08-29 09:27] LABS: BILIRUBIN,TOTAL 0.4 mg/dL (0.2-1)
[2021-08-29 09:28] LABS: TOT PROT 7.6 g/dl (6.4-8.2)
[2021-08-29] MEDS: amLODIPine BESYLATE 5 MG TABLET (FP) PO SCH (09:51)
[2021-08-29] MEDS: ENOXAPARIN NA (PORCINE) 40 MG/0.4 ML DISP.SYRIN SQ SCH (09:52)
[2021-08-29] MEDS: POLYETHYLENE GLYCOL (HEALTHYLAX) 3350 17 GM PACKET PO SCH (09:52)
[2021-08-29] MEDS: PANTOPRAZOLE 40 MG TABLET PO SCH (09:52)
[2021-08-29] MEDS ORDERED: CEFTRIAXONE 2 GM in DEXTROSE 5%-WATER 2 GM/50 ML BAG IVPB SCH (13:30)
[2021-08-29] MEDS ORDERED: DEXTROSE 5%-WATER 100 ML IVPB ONE (14:51)
[2021-08-29 15:00] VITALS: BP 134/76; PULSE 88; TEMP 98.4
[2021-08-29] MEDS ORDERED: CEFTRIAXONE 2 GM in DEXTROSE 5%-WATER 100 ML IVPB SCH (15:00)
== END 2021-08-29 16:15 | DRG 479 ==
LOC: JER 20:57 → JERBED 08-16 02:23 → J4S 08-16 05:50 → J7W 08-22 13:00
PROVIDERS: ADMIT Internal Medicine; ATTEND Internal Medicine
PROC: 0DJD8ZZ Inspection of Lower Intestinal Tract, Via Natural or Artificial Opening Endoscopic (ICD-10-PCS; principal; 2021-08-18 12:00)
PROC: 0Q903ZX Drainage of Lumbar Vertebra, Percutaneous Approach, Diagnostic (ICD-10-PCS; 2021-08-21)
PROC: 0S9D3ZX Drainage of Left Knee Joint, Percutaneous Approach, Diagnostic (ICD-10-PCS; 2021-08-25)
PROC: 3E0U33Z Introduction of Anti-inflammatory into Joints, Percutaneous Approach (ICD-10-PCS; 2021-08-25)
PROC: 02HV33Z Insertion of Infusion Device into Superior Vena Cava, Percutaneous Approach (ICD-10-PCS; 2021-08-29)
PROC: B548ZZA Ultrasonography of Superior Vena Cava, Guidance (ICD-10-PCS; 2021-08-29)
DX: M46.26 Osteomyelitis of vertebra, lumbar region (principal); R74.01 Elevation of levels of liver transaminase levels; D75.839 Thrombocytosis, unspecified; I10 Essential (primary) hypertension; R74.8 Abnormal levels of other serum enzymes; D57.3 Sickle-cell trait; K56.41 Fecal impaction; M46.46 Discitis, unspecified, lumbar region; E83.52 Hypercalcemia; N28.1 Cyst of kidney, acquired; M88.88 Osteitis deformans of other bones; M10.9 Gout, unspecified
CPT/HCPCS: 36415; 36569; 62287; 71250-TC; 72125-TC; 72128-TC; 72131-TC; 72148-TC; 72158-TC; 72170-TC-FY; 73502-TC-RT-FY; 73700-TC-RT; 74176-TC; 74181-TC; 76700-TC; 76705-TC; 77001-TC-FY; 80053; 81003; 82310; 82550; 82728; 82784; 82945; 82977; 83021; 83036; 83540; 83550; 83615; 83735; 83883; 83970; 84100; 84153; 84155; 84156; 84165; 84166; 84550; 84560; 85025; 85027; 85384; 85610; 85651; 85660; 85730; 86038; 86140; 86431; 86480; 86705; 86707; 86709; 87040; 87070; 87075; 87186; 87205; 87340; 87350; 87389; 87517; 87522; 88305-TC; 89060; 93005; 93010; 93306-TC; 97116-GP; 97161-GP; 99285-25; A9579; C1751; C9803-CS; U0003; U0005

== ENCOUNTER 2021-09-23 18:36 | Emergency (ER) | payer OTHER ==
[2021-09-23 19:03] VITALS: BP 120/72; PULSE 86; BMI 23.0
== END 2021-09-23 20:28 | disposition home or self-care (01) ==
LOC: JER 18:36
DX: T82.598A Other mechanical complication of other cardiac and vascular devices and implants, initial encounter (principal)
CPT/HCPCS: 99282-25

== ENCOUNTER 2022-08-10 13:18 | Emergency (ER) | payer OTHER ==
[2022-08-10 13:29] VITALS: BP 187/100; PULSE 86; RESP 18; TEMP 97.8; BMI 22.8
[2022-08-10 14:40] LABS: HEMATOCRIT 46.7 % (35.4-49); HEMOGLOBIN 15.7 G/dL (11.7-16.9); MCH 31.1 pg (25.7-33.7); MCHC 33.5 g/dl (32.0-35.9); MEAN CELL VOLUME 92.9 fl (80-96); MEAN PLT VOLUME 8.6 fl (7.5-11.1); PLATELET COUNT 229.1 10^3/uL (134-434); RBC 5.03 10^6/uL (4.00-5.60); RDW 15.4 % (11.9-15.9); WHITE BLOOD COUNT 11.2 10^3/uL (4.0-10.8)
[2022-08-10 14:47] LABS: ALBUMIN 4.4 g/dl (3.4-5.0); BILIRUBIN,TOTAL 1.1 mg/dl (0.2-1); CALCIUM 9.5 mg/dl (8.5-10); CREATININE 1.1 mg/dl (0.55-1.3); POTASSIUM 4.9 mmol/L (3.5-5.1); TOT PROT 7.7 g/dl (6.4-8.2)
[2022-08-10 15:18] LABS: ANISOCYTOSIS 1+; PLATELET ESTIMATE ADEQUATE
== END 2022-08-10 15:15 | disposition home or self-care (01) ==
LOC: FER 13:18
DX: R07.81 Pleurodynia (principal); R07.89 Other chest pain; M25.512 Pain in left shoulder
CPT/HCPCS: 36415; 71046-TC-FY; 80053; 84484; 85027; 93005; 99285-25

== ENCOUNTER 2022-11-23 05:11 | Day surgery (SDC) | payer OTHER ==
[2022-11-18 12:56] VITALS: BMI 25.3
[2022-11-23 08:42] VITALS: TEMP 97.7
[2022-11-23 09:31] VITALS: BP 128/80; PULSE 64; RESP 14
== END 2022-11-23 09:31 | disposition home or self-care (01) ==
LOC: JASU-ENDO 05:11
PROVIDERS: ATTEND Internal Medicine Gastroenterology
PROC: 0DB98ZX Excision of Duodenum, Via Natural or Artificial Opening Endoscopic, Diagnostic (ICD-10-PCS; 2022-11-23)
PROC: 0DB68ZX Excision of Stomach, Via Natural or Artificial Opening Endoscopic, Diagnostic (ICD-10-PCS; 2022-11-23)
PROC: 0DBK8ZX Excision of Ascending Colon, Via Natural or Artificial Opening Endoscopic, Diagnostic (ICD-10-PCS; principal; 2022-11-23 08:00)
DX: Z12.11 Encounter for screening for malignant neoplasm of colon (principal); D12.2 Benign neoplasm of ascending colon; K64.4 Residual hemorrhoidal skin tags; K59.89 Other specified functional intestinal disorders; K29.50 Unspecified chronic gastritis without bleeding; B96.81 Helicobacter pylori [H. pylori] as the cause of diseases classified elsewhere; D64.9 Anemia, unspecified; K59.00 Constipation, unspecified; I10 Essential (primary) hypertension
CPT/HCPCS: 88305-TC; 88342-TC

== ENCOUNTER 2023-11-21 12:22 | Emergency (ER) | payer OTHER ==
[2023-11-21 12:38] VITALS: BP 135/91; PULSE 74; RESP 20; TEMP 98; BMI 25.0
[2023-11-21] MEDS ORDERED: ACETAMINOPHEN 325 MG TABLET (FP) ONE (15:22)
[2023-11-21] MEDS: ACETAMINOPHEN 500 MG TABLET (FP) PO ONE (15:25)
== END 2023-11-21 16:31 | disposition home or self-care (01) ==
LOC: JERFT 12:22
DX: M54.6 Pain in thoracic spine (principal); R51.9 Headache, unspecified; V43.52XA Car driver injured in collision with other type car in traffic accident, initial encounter; Y92.410 Unspecified street and highway as the place of occurrence of the external cause
CPT/HCPCS: 72128-TC; 99284-25

== ENCOUNTER 2023-12-05 11:34 | Emergency (ER) | payer OTHER ==
[2023-12-05 12:20] VITALS: BMI 25.0
[2023-12-05] MEDS: METOCLOPRAMIDE HCL 10 MG TABLET (FP) PO ONE (12:34)
[2023-12-05] MEDS ORDERED: ACETAMINOPHEN INJECTION 100 ML ONE (12:38)
[2023-12-05] MEDS ORDERED: METOCLOPRAMIDE HCL INJECTION 10 MG/2 ML VIAL ONE (12:38)
[2023-12-05] MEDS: SODIUM CHLORIDE 1,000 ML IV STA (14:30)
[2023-12-05] MEDS: ACETAMINOPHEN 1000 MG/100 ML BAG IVPB ONE (14:30)
[2023-12-05] MEDS: METOCLOPRAMIDE HCL INJECTION 10 MG/2 ML VIAL IVPB ONE (14:30)
[2023-12-05 14:46] LABS: BASO % 0.5 % (0-2.0); EOS % 0.5 % (0-4.5); HEMATOCRIT 46.8 % (35.4-49); HEMOGLOBIN 15.1 GM/dL (11.7-16.9); LYMPH % 11.4 % (8-40); MCH 29.8 pg (25.7-33.7); MCHC 32.2 g/dl (32.0-35.9); MEAN CELL VOLUME 92.6 fl (80-96); MEAN PLT VOLUME 7.8 fl (7.5-11.1); MONO % 4.9 % (3.8-10.2); NEUT % 82.7 % (42.8-82.8); PLATELET COUNT 285 10^3/uL (134-434); RBC 5.06 M/mm3 (4.00-5.60); RDW 15.1 % (11.9-15.9); WHITE BLOOD COUNT 12.5 K/mm3 (4.0-10.0)
[2023-12-05 15:05] LABS: POTASSIUM 4.8 mmol/L (3.5-5.1)
[2023-12-05 15:06] LABS: ALBUMIN 4.2 g/dl (3.4-5.0); BLOOD UREA NITROGEN 20.5 mg/dL (7-18); CALCIUM 10.1 mg/dL (8.5-10.1); MAGNESIUM 2.4 mg/dL (1.8-2.4)
[2023-12-05 15:10] LABS: CREATININE 0.9 mg/dL (0.55-1.3)
[2023-12-05 15:12] LABS: BILIRUBIN,TOTAL 0.5 mg/dL (0.2-1); TOT PROT 8.2 g/dl (6.4-8.2)
[2023-12-05 16:01] LABS: HIV INTERPRETATION NEGATIVE (NEGATIVE)
[2023-12-05 16:43] VITALS: TEMP 98
[2023-12-05 18:23] VITALS: BP 128/86; PULSE 86; RESP 18
== END 2023-12-05 18:42 | disposition short-term general hospital (02) ==
LOC: JER 11:34
PROC: 3E033GC Introduction of Other Therapeutic Substance into Peripheral Vein, Percutaneous Approach (ICD-10-PCS; principal; 2023-12-05)
PROC: 3E033NZ Introduction of Analgesics, Hypnotics, Sedatives into Peripheral Vein, Percutaneous Approach (ICD-10-PCS; 2023-12-05)
PROC: 3E0337Z Introduction of Electrolytic and Water Balance Substance into Peripheral Vein, Percutaneous Approach (ICD-10-PCS; 2023-12-05)
DX: R55 Syncope and collapse (principal); R42 Dizziness and giddiness; R51.9 Headache, unspecified; R53.83 Other fatigue; R26.81 Unsteadiness on feet; Z20.822 Contact with and (suspected) exposure to COVID-19; R53.1 Weakness
CPT/HCPCS: 0241U-QW; 36415; 70450-TC; 70496-TC; 70498-TC; 71045-TC-FY; 80053; 82962; 83735; 84484; 85025; 86803; 87389; 93005; 93010; 96361; 96374; 96375; 99285-25; J0131; Q9967

== ENCOUNTER 2024-03-30 10:37 | Observation (INO) | payer OTHER ==
[2024-03-30 11:52] LABS: HEMATOCRIT 45.4 % (35.4-49); HEMOGLOBIN 14.6 G/dL (11.7-16.9); MCH 30.2 pg (25.7-33.7); MCHC 32.2 g/dl (32.0-35.9); MEAN CELL VOLUME 93.9 fl (80-96); PLATELET COUNT 240.2 10^3/uL (134-434); RBC 4.84 10^6/uL (4.00-5.60); RDW 15.5 % (11.9-15.9); WHITE BLOOD COUNT 7.1 10^3/uL (4.0-10.8)
[2024-03-30 12:20] LABS: ALBUMIN 4.8 g/dl (3.4-5.0); BILIRUBIN,TOTAL 0.7 mg/dl (0.2-1); CALCIUM 10.4 mg/dl (8.5-10.1); CREATININE 1.1 mg/dl (0.6-1.3)
[2024-03-30 18:02] VITALS: BMI 24.5
[2024-03-30] MEDS: POLYETHYLENE GLYCOL (HEALTHYLAX) 3350 17 GM PACKET PO SCH (22:17)
[2024-03-30] MEDS: MINERAL OIL ENEMA 133 ML ENEMA RC SCH (22:17)
[2024-03-30 22:43] VITALS: RESP 18
[2024-03-31 06:27] VITALS: BP 125/84; PULSE 65; TEMP 98.1
[2024-03-31 08:36] LABS: CALCIUM 9.9 mg/dl (8.5-10.1); CREATININE 0.9 mg/dl (0.6-1.3); POTASSIUM 4.2 mmol/L (3.5-5.1)
[2024-03-31 09:11] LABS: EOS % 3.2 % (0-4.5); HEMATOCRIT 42.9 % (35.4-49); LYMPH % 42.7 % (8-40); MCH 30.4 pg (25.7-33.7); MCHC 32.6 g/dl (32.0-35.9); MEAN CELL VOLUME 93.1 fl (80-96); MEAN PLT VOLUME 7.9 fl (7.5-11.1); MONO % 7.7 % (3.8-10.2); NEUT % 45.4 % (42.8-82.8); PLATELET COUNT 265 10^3/uL (134-434); RBC 4.61 M/mm3 (4.00-5.60); WHITE BLOOD COUNT 5.6 K/mm3 (4.0-10.0)
[2024-03-31] MEDS: amLODIPine BESYLATE 5 MG TABLET (FP) PO SCH (09:31)
== END 2024-03-31 13:00 | disposition home or self-care (01) ==
LOC: FER 10:37 → FM/S 16:30 → UNDOADMOB 16:30 → INTOOBSV 16:30 → FM/S 17:31
PROVIDERS: ADMIT Internal Medicine
DX: K59.09 Other constipation (principal); I10 Essential (primary) hypertension; E78.5 Hyperlipidemia, unspecified
CPT/HCPCS: 36415; 74177-TC; 80048; 80053; 85025; 99285-25; G0378; Q9967

== ENCOUNTER 2024-05-16 09:03 | Day surgery (SDC) | payer OTHER ==
[2024-05-15 13:06] VITALS: BMI 22.9
[2024-05-16] MEDS ORDERED: PROPOFOL 20 ML ONE (10:44)
[2024-05-16 12:10] VITALS: TEMP 98
[2024-05-16 12:14] VITALS: RESP 19
[2024-05-16 12:18] VITALS: BP 108/81; PULSE 86
== END 2024-05-16 11:40 | disposition home or self-care (01) ==
LOC: FASU-ENDO 09:03
PROVIDERS: ATTEND Internal Medicine Gastroenterology
PROC: 0DB68ZX Excision of Stomach, Via Natural or Artificial Opening Endoscopic, Diagnostic (ICD-10-PCS; principal; 2024-05-16 10:41)
DX: Z13.810 Encounter for screening for upper gastrointestinal disorder (principal); K29.50 Unspecified chronic gastritis without bleeding; B96.81 Helicobacter pylori [H. pylori] as the cause of diseases classified elsewhere
CPT/HCPCS: 88305-TC; 88342-TC